=== PATIENT | male | born 1975 | race Caucasian/White ===

== ENCOUNTER 2017-06-27 21:10 | Emergency (ER) | payer MEDICAID ==
[~2017-06-27] VITALS: Ht 170.2 cm; Wt 82.2 kg
[2017-06-27 21:14] VITALS: Ht 170.2 cm; Wt 82.2 kg
[2017-06-28] MEDS ORDERED: DIPHTH/TET/ACEL PERTUSS (ADULT) 0.5 ML VIAL IM* ONE
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
[2017-06-28] MEDS ORDERED: HYDROCODONE/APAP (5/325) TAB PO ONE (00:30)
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
[2017-06-28] MEDS ORDERED: ACET500C5 PO (02:31)
[2017-06-28] MEDS ORDERED: IBUP800T25 PO (02:31)
[2017-06-28] MEDS ORDERED: CYCL-319 PO (02:32)
== END 2017-06-28 02:38 | disposition home or self-care (01) ==
LOC: FTE 21:10
DX: S06.0X0A Concussion without loss of consciousness, initial encounter (principal); S40.011A Contusion of right shoulder, initial encounter; B69.9 Cysticercosis, unspecified; R07.81 Pleurodynia; V13.4XXA Pedal cycle driver injured in collision with car, pick-up truck or van in traffic accident, initial encounter; Z23 Encounter for immunization
CPT/HCPCS: 70450; 71020; 73030; 73070; 90715; 93005; 96372; Z7502; Z7610